=== PATIENT | female | born 1985 | race Caucasian/White ===

== ENCOUNTER → 2024-05-04 13:12 | Outpatient (REF) | payer BC, SELFPAY | LOC: HWRAD 13:12 | PROVIDERS: ATTENDING PHYSICIAN Physician Assistant Medical | DX: Z87.39 Personal history of other diseases of the musculoskeletal system and connective tissue (principal) | CPT/HCPCS: 77080 ==

== ENCOUNTER → 2025-01-05 09:12 | Outpatient (REF) | payer BC, SELFPAY | LOC: WDC 09:12 | PROVIDERS: ATTENDING PHYSICIAN Obstetrics & Gynecology; FAMILY PHYSICIAN Family Medicine | DX: N63.42 Unspecified lump in left breast, subareolar (principal) | CPT/HCPCS: 76642 ==